=== PATIENT | male | born 1970 | race Caucasian/White ===

== ENCOUNTER 2017-04-27 13:03 | Inpatient (IN) | payer OTHER ==
[2017-04-27] MEDS ORDERED: LIDOCAINE 1% 300 MG/30 ML SDV ONE (13:08)
--- NOTE | 2017-04-27 15:51 | PDHPUP ---
History & Physical Update H&P update statement: HPI James presents for evaluation of his LLE stump s/p BKA. He reports injury while placing car cover on his car when he lost his balance and fell. He was started on a course of oral antibiotics on Monday (augmentin). He has had persistent pain overlying the distal posteromedial thigh. ROS ROS as noted in the HPI Physical Exam Patient is a 46-year-old male. Firm, tender area along the posteromedial aspect of the distal thigh. Diffuse erythema overlying the BKA stump. No evidence of purulence or infection. Distal neurovascular exam is intact. Assessment / Plan r/o LLE abscess, r/o LLE DVT James's ongoing symptoms are of unclear etiology. That said, there is suspicion for both possible DVT and possible abscess. It was recommended he undergo a LLE US and LLE MRI to evaluate for the above. These orders were placed STAT today. He will be contacted with the results to determine next steps. 1. Pain in lower limb - Left M79.605: Pain in left leg US, LOWER EXTREMITY, VASCULAR - Priority: STAT Note to Imaging Facility: r/o LLE DVT Side: LEFT LEG PAIN: CARE INSTRUCTIONS 2. Amputated below knee Z89.519: Acquired absence of unspecified leg below knee MRI FEMUR WO - LEFT - Priority: STAT Note to Imaging Facility: MRI L knee , distal thigh and amputation stump. r/o abscess Side: LEFT Height (ft.): 6 ft 7 in Weight (lbs): 320 This history and physical update is based on an assessment of the patient which was completed after admission or registration (within 24 hours), but prior to the surgery/procedure.
[2017-04-27] MEDS ORDERED: INSULIN REGULAR HUMAN 100 UNIT/ML UNIT SC ONE ×2 (19:15→21:18)
--- NOTE | 2017-04-27 19:15 | PDANEPAE ---
ANE History of Present Illness Patient presents for lower extremity I&D ANE Past Medical History - Pulmonary History Hx Oxygen in Use at Home: No Hx Sleep Apnea: No Sleep Apnea Screening Result - Last Documented: Positive - Endocrine History Hx Diabetes: Yes - Renal History Hx Renal Disorders: Yes - Chronic Pain History Chronic Pain: Yes (left foot) ANE Review of Systems Review of Systems: ANE Patient History - Allergies Allergies/Adverse Reactions: ceftriaxone sodium [From Rocephin] Allergy (Intermediate, Verified 12/27/13 09: 56) Other-Enter Comments oxycodone [Oxycodone] Allergy (Intermediate, Verified 01/08/14 10:39) Other-Enter Comments - Home Medications Home medications: home medication list seen and reviewed Home Medications: Multivitamins [Multivitamin (*)] 1 each PO DAILY 12/24/13 [Last Taken 04/26/17] Insulin Glargine [Lantus 100 UNITS/ML (*)] 40 units SC BID 04/27/17 [Last Taken 04/27/17] Insulin Lispro [HumaLOG LISPRO] 0 unit SC TIDMEAL PRN 04/27/17 [Last Taken 04/26] - NPO status NPO Status: no food or drink >8 hours NPO Since - Liquids (Date): 04/27/17 NPO Since - Liquids (Time): 09:30 NPO Since - Solids (Date): 04/27/17 NPO Since - Solids (Time): 09:30 - Anes Hx Anes Hx: no prior problems - Smoking Hx Smoking Status: Never smoked ANE Labs/Vital Signs - Labs Result Diagrams: 04/28/17 08:15 04/28/17 08:15 - Vital Signs Blood Pressure: 134/88 Heart Rate: 95 Respiratory Rate: 18 O2 Sat (%): 95 Height: 200.66 cm Weight: 145.15 kg ANE Physical Exam - Airway Neck exam: decreased ROM Mallampati Score: Class 3 - Pulmonary Pulmonary: no respiratory distress - Cardiovascular Cardiovascular: regular rate and rhythym - ASA Status ASA Status: III ANE Anesthesia Plan Anesthesia Plan: general endotracheal anesthesia Specialized Airway: video laryngoscope (RBA discussed)
[2017-04-27] MEDS ORDERED: PHENYLEPHRINE HCL 100 MCG/ML SYR ONE (19:19)
[2017-04-27] MEDS ORDERED: fentaNYL 100 MCG/2 ML INJ ONE ×2 (19:19→20:13)
[2017-04-27] MEDS ORDERED: ONDANSETRON 4 MG/2 ML VIAL ONE (19:19)
[2017-04-27] MEDS ORDERED: METOCLOPRAMIDE 10 MG/2 ML VIAL ONE (19:19)
[2017-04-27] MEDS ORDERED: SUCCINYLCHOLINE CHLORIDE 200 MG/10 ML SYR IVP ONE (19:19)
[2017-04-27] MEDS ORDERED: BUPIVACAINE 0.5% 30 ML SDV ONE (19:19)
[2017-04-27] MEDS ORDERED: VASOPRESSIN 20 UNIT/ML VIAL ONE (19:19)
[2017-04-27] MEDS ORDERED: PROPOFOL 200 MG/20 ML VIAL ONE (19:19)
--- NOTE | 2017-04-27 19:35 | POSTOPPROG ---
Post Op Note Date of Operation: 04/28/17 Surgeon: Alec Tillman Anesthesia: GET(General Endotracheal) Pre-op Diagnosis: L BKA infection Post-op Diagnosis: same Procedure: I&D L leg Inf/Abcess present in the surg proc area at time of surgery?: Yes Depth: Deep Incisional (Fascial) EBL: Minimal Specimen(s): cultures
--- NOTE | 2017-04-27 21:18 | POSTANESTH ---
Post Anesthetic Evaluation Cardiovascular Status: Similar to Pre-Op Cond Respiratory Status: Similar to Pre-op Cond. Level of Consciousness/Mental Status: Alert and Oriented (Giving insulin for hyperglycemia, otherwise uneventful recovery) Pain Control: Adequate, Prn Tx Ordered Nausea/Vomiting Control: Adequate, Prn Tx Ordered Complications Possibly Related to Anesthesia: None Noted
--- NOTE | 2017-04-27 21:35 | GOP ---
[f rep st] OPERATIVE REPORT Corrected report DATE OF OPERATION: 04/27/2017 SURGEON: Alec Tillman MD ANESTHESIA: General. PREOPERATIVE DIAGNOSIS: 1. Left below-knee amputation and abscess. 2. Retained hardware. POSTOPERATIVE DIAGNOSIS: 1. Left below knee amputation and abscess. 2. Retained hardware. PROCEDURE PERFORMED: 1. Irrigation and debridement, left below knee amputation. 2. Hardware removal, left fibula. FINDINGS: SPECIMENS: Cultures sent to pathology for evaluation. ESTIMATED BLOOD LOSS: Minimal. INDICATIONS: Patient is a 46-year-old with a several year history of a well functioning below knee amputation. The patient had a recent fall. Several days after that he began developing some redness and swelling in his leg. Aspiration was performed under ultrasound guidance, which revealed purulence. Based on this, he was taken back to the operating room for formal irrigation and debridement. The patient acknowledged he understood the potential risks including, but not limited to, bleeding, infection, neurovascular damage, loss of limb function, need for further operative treatment, persistence of infection and the anesthetic risks. He acknowledged he understood the potential risks, planned procedure, and postoperative plan well, and had all questions answered. He gave his consent for the operative procedure. DESCRIPTION OF PROCEDURE: The patient was brought to the operating after IV antibiotics were administered. He was placed in a supine position where general anesthetic was administered. A tourniquet was placed on his left thigh. His left lower leg was prepped and draped in standard sterile fashion. After marking the incision, Asim wrap exsanguination, tourniquet was inflated to 250. A small incision was made along the medial aspect of his distal below- knee amputation over an area of fluctuance and an area which had been confirmed to have purulence under ultrasound guidance. Skin and subcutaneous tissue were sharply incised. Below the subcutaneous tissue purulence was expressed. This was approximately 5 mL. Utilizing 9 L of sterile saline irrigant, the wound was copiously irrigated. After the 1st 3 L had been irrigated, the scissors were utilized to open up the contained area further to see if the abscess tracked. It did not track any further. After complete irrigation was performed , a 10-Indonesian drain was placed and the wound was closed with 3-0 Vicryl suture in the subcutaneous tissue and 3-0 nylon interrupted vertical mattress sutures. Attention was then directed toward his screw removal. Under fluoroscopic guidance, the location of the screw head was identified. A stab incision was made over this. The screw was identified and removed without difficulty. The wound was closed with 3-0 nylon suture. The wounds were dressed with sterile Adaptic, 4 x 4, and Kerlix. Patient tolerated the procedure well, was taken to the recovery room extubated in stable condition postoperatively. All sponge, needle, instrument counts were reported as being correct. DRAINS: 10-Indonesian SUKUMAR. COMPLICATIONS: None. /[id number]/MODL Homer acc#, 04/28/17, oliver CAMPBELL
[2017-04-27] MEDS ORDERED: D5W 1/2 NS W/ 20 KCl/L 1,000 ML IV SCH (23:12)
[2017-04-27] MEDS ORDERED: HYDROmorphONE/DILAUDID 6 MG/30 ML PCA IV PRN (23:20)
[2017-04-27] MEDS ORDERED: diphenhydrAMINE 25 MG CAP PO PRN (23:20)
[2017-04-27] MEDS ORDERED: NALOXONE HCL 0.4 MG/ML INJ IVP PRN (23:20)
[2017-04-27] MEDS ORDERED: VANCOMYCIN 1.5 GM in NS 250 ML IV ONE (23:20)
[2017-04-27] MEDS ORDERED: INSULIN LISPRO 100 UNIT/ML SC PRN (23:20)
[2017-04-27] MEDS ORDERED: D50W 25 GM/50 ML VIAL IVP PRN (23:38)
[2017-04-27] MEDS ORDERED: NS 1,000 ML IV SCH (23:45)
[2017-04-28] MEDS: INSULIN GLARGINE 100 UNITS/ML UNIT SC SCH ×3 (00:01→21:34)
[2017-04-28] MEDS: HYDROmorphONE/DILAUDID 1 MG/ML INJ IVP PRN ×2 (00:15→05:58)
--- NOTE | 2017-04-28 06:49 | SOAPPROG ---
SOAP Progress Note Assessment/Plan: Assessment: S/P I&D L BKA Pain tolerable Noah po L LE Dressing/drain intact. Mild sang drain output Thigh erythema improved Plan: Infection appeared to be isolated pocket of infection that did not communicate with the bone Con't drain Abx per ID 04/28/17 06:46 Objective: Vital Signs Temp Pulse Resp BP Pulse Ox 36.9 C 83 17 142/79 H 98 04/28/17 04:32 04/28/17 04:32 04/28/17 04:32 04/28/17 04:32 04/28/17 04:32 Microbiology 04/27/17 14:30 Gram Stain - Final Thigh - Aspirate 04/27/17 04/28/17 04/29/17 05:59 05:59 05:59 Intake Total 1860 Output Total 710 Balance 1150 ICD10 Worksheet Patient Problems: Problems Problem Status Onset Diabetes mellitus type 1 Active MRSA - Methicillin resistant Staphylococcus aureus infection Active
[2017-04-28] MEDS ORDERED: INSULIN LISPRO 100 UNIT/ML SC SCH (07:30)
[2017-04-28] MEDS ORDERED: INSULIN LISPRO 100 UNIT/ML SC ONE (07:57)
[2017-04-28] MEDS ORDERED: traMADol 50 MG TAB PO PRN (08:00)
[2017-04-28] MEDS ORDERED: LORazepam 0.5 MG TAB PO PRN (08:01)
[2017-04-28] MEDS: INSULIN LISPRO 100 UNIT/ML SC SCH ×3 (08:33→18:25)
[2017-04-28] MEDS: MULTIVITAMINS 1 EACH TAB PO SCH (08:34)
[2017-04-28 08:39] LABS: PLATELET COUNT 242 10^3/uL (150-400)
--- NOTE | 2017-04-28 08:52 | WOCRNPDOC ---
WOCRPedro Advanced Assessment Note - Skin Integrity Problem, Advanced Assess Left Lateral Residual Limb Abrasion Dressing Type: Kerlix Exudate Amount: Scant Exudate Color: Reddish/Yellow Exudate Characteristic(s): Serosanguinous Integumentary Issue Intervention: Dressing Applied, Hydrogel Applied Margot Wound Tissue: Intact Margot Wound Swelling: Mild Wound Bed Color: Red Wound Bed Constitution: Red/[place] - Non Granular Tissue Wound Edges: Epithelizing Site Odor: None Site Measurement - Head-to-Toe Length X Width X Depth (cm): 1.2cmx1.4cmx0.1cm Skin Integrity Problem Comment: Small, partial-thickness wound on lateral aspect of patient's L residual limb, which he reports is a result of friction from using his former prosthesis. Periwound skin is intact, and swelling in this extremity is the result of surgery. Allevyn dressing and hydrogel applied. Wound care does not need to follow this wound ongoing. rug setter axminsterSUSI Rowe present to visualize site.
--- NOTE | 2017-04-28 12:48 | GCON ---
[f rep st] CONSULTATION DATE OF CONSULTATION: 04/28/2017 REFERRING PHYSICIAN: Alec Tillman MD SOURCE: Patient provides history, appears reliable. His EMR was reviewed. REASON FOR CONSULTATION: Assistance with medical management. CHIEF COMPLAINT: "My sugars are always high", uncontrolled diabetes. HISTORY OF PRESENT ILLNESS: This is a 46-year-old gentleman with past medical history significant fo r diabetes type 2, uncontrolled for the past 15 years, on insulin therapy, who is admitted postop day #1 now status post left BKA revision and I and D. Hospitalist service consulted to assist with medi nader management by problem. 1. Diabetes type 2, uncontrolled with multiple complications including neuropathy, nephropathy, and hyperglycemia. Patient reports that he takes Lantus 40 units subcu b.i.d. as well as insulin sliding scale. He remains intermittently compliant with a diabetic diet and reports that his average mornin g blood sugars remain above 350, but feels that this is normal for him. The patient without any poly uria, polydipsia, or polyphagia at this time. No shortness of breath. No fevers. 2. History of elevated blood pressures. Patient denies hypertension or treatment for it. The patie nt was previously hospitalized 2013 following his initial left BKA at which point he was discharged o n antihypertensives. However, patient reports that he no longer takes these medications. He denies any chest pain, palpitations, headache. 3. Anemia, likely of chronic disease. The patient's H and H yesterday were above previous labs avai lable for review. REVIEW OF SYSTEMS: Negative, except as noted above. ALLERGIES: To Rocephin, Versed, oxycodone. HOME MEDICATIONS: Lantus 40 units subcu twice daily and lispro dose sliding scale. CURRENT HOSPITAL MEDICATIONS: Benadryl, Dilaudid, Lantus, lispro, naloxone and vancomycin. PAST MEDICAL HISTORY: Significant for diabetes type 2, insulin dependent, remote history of MRSA wou nd infection in 2013, status post BKA, benign essential hypertension, which patient reports is untrea janette, anemia, and obesity with BMI of 36. PAST SURGICAL HISTORY: Significant for left BKA in 2013 and now postop day #1 status post I and D an d drain. FAMILY HISTORY: Patient denies any diabetes or coronary artery disease. SOCIAL HISTORY: Patient lives with his father. He does not smoke. He drinks occasionally. No illi cit drug use. CODE STATUS: Full. PHYSICAL EXAM: VITAL SIGNS: Currently blood pressure 137/78, pulse 83, respiratory rate 18, O2 sat is 97% on 3 L by nasal cannula with a temperature 36.8. GENERAL: No acute distress. Bradford, adul t gentleman, obese, who is lying quietly in bed. HEAD: Normocephalic, atraumatic. EYES: Extraocula r muscles are grossly intact but patient, pupils are symmetric. No scleral icterus or conjunctival i njection. ENT: Mucous membranes appear slightly dry. No oropharyngeal erythema or exudates. No na johanna discharge. NECK: Supple, trachea midline. CARDIOVASCULAR: Regular rate and rhythm. No murmurs , rubs, or gallops appreciated. RESPIRATORY: Unlabored breathing. Lungs are clear to auscultation b ilaterally. No wheezes, rales, or rhonchi appreciated. ABDOMEN: Obese, soft, nontender to palpatio n. No rebound, guarding, or masses appreciated. : No Huffman in place. No suprapubic tenderness t o palpation. EXTREMITIES: Left lower extremity is bandaged with a drain and there is serosanguineou s fluid in the bulb. No lower extremity edema on the right lower extremity. NEURO: Grossly nonfoca l, no facial drooping. Moves all extremities while lying in bed. PSYCH: Affect is slightly flat. The patient is a little bit sleepy after a dose of Dilaudid. The patient is cooperative and pleasant . LABORATORY STUDIES: From 04/27/2017, WBC 9.14, H and H 10.6 and 31.1, MCV of 81.4, platelet count is 244, 1.5% bands. Sodium is 132, potassium 4.0, chloride 103, CO2 is 18, anion gap 11, BUN 38, creati nine 3.1, GFR of 22. Based on previous laboratory studies from 2004, it appears patient's baseline c reatinine is between 3 and 4, glucose is 338, calcium 8.6. This morning's bedside glucose is greater than 350. Gram stains from wound cultures with multiple polys and gram-positive cocci. Cultures ar e pending. ASSESSMENT AND PLAN: Bradford 46-year-old gentleman status post operative day #1 for a left stump in cision and drainage with drain. Hospitalist consultation for assistance with medical management by nina jose: 1. Diabetes type 2, uncontrolled. Resume patient's Lantus 40 units twice daily as well as high dose lispro. ADA diet is ordered and will monitor blood sugars closely as I suspect his diet in-house wi ll vary from his home intake. Accu-Cheks, high-dose sliding scale have also been ordered. Morning l abs are pending. 2. Chronic kidney disease stage 4, likely close to baseline. Will plan to repeat a BMP this morning and monitor. 3. Hyponatremia, likely related to hyperglycemia, which nearly corrects, versus some component of de hydration. BMP is pending this morning. 4. History of Methicillin-resistant staphylococcus aureus wound infection remotely, now status post incision and drainage with gram-positive cocci on 04/14 wound cultures. Wound Gram stains and cultures are pending. Infectious Disease has been consulted by the primary team. Vancomycin has already bee n received. 5. Anemia, likely component of some anemia of chronic disease. Will monitor for any postop losses. 6. Obesity, body mass index of 36.0. 7. Fluid, electrolyte, nutrition. The patient does have intravenous fluids 75 mL/h infusing for 1 L , agree with this and then advance diet as tolerated. Encourage oral hydration. Electrolytes will b e monitored. Patient with likely pseudohyponatremia. He is receiving intravenous fluids and will re peat a BMP this morning. ADA diet is ordered as per primary team. 8. Prophylaxis is sequential compression devices to the right leg. Anticoagulation as per primary t eam. 9. Code full. DISPOSITION: Patient admitted for observation on the medical floor. Of note, patient has an OBS nanci rt in which all the admission orders and labs are located should you be looking for the patient's adm ission data. /[id number]/MODL
--- NOTE | 2017-04-28 13:49 | HOSPPROG ---
Hospitalist Progress Note Assessment/Plan: Patient is a 46-year-old male who was admitted for a left BKA revision and I and D. The hospitalist team was asked to get involved with his care to help evaluate his glucoses and hypertension. I reviewed his care with the hospitalist this morning. Came by to follow up with him and make sure his questions were answered. * diabetes type 2 -on long-acting 40 U twice daily -high-dose lispro -ADA diet initiated * chronic kidney disease stage 4 -reviewed his kidney function in the past and this is close to his baseline * hyponatremia * status post left BKA revision and I and D -care per Dr. Tillman -patient describes falling and getting a hematoma *left stump abscess -vanco -ID seeing * obesity with a BMI of 36 * anemia -following *dvt prophylaxis: if ok with ortho, would recommend heparin sq tid, for now cont athrombic pump, ambulation *Plan: cont abx, follow glucoses closely Subjective: James said his pain is overall well managed. Objective: Vital Signs Temp Pulse Resp BP Pulse Ox 36.9 C 82 17 148/85 H 97 04/28/17 11:32 04/28/17 11:32 04/28/17 11:32 04/28/17 11:32 04/28/17 11:32 Microbiology 04/27/17 14:30 Gram Stain - Final Thigh - Aspirate Laboratory Results 04/28/17 08:15 04/28/17 08:15 04/27/17 04/28/17 04/29/17 05:59 05:59 05:59 Intake Total 1860 Output Total 710 Balance 1150 - Physical Exam Constitutional: no apparent distress, obese Eyes: PERRL Ears, Nose, Mouth, Throat: hearing normal Respiratory: no respiratory distress Gastrointestinal: normoactive bowel sounds Skin: warm Musculoskeletal: generalized weakness Neurologic: AAOx3 Psychiatric: interacting appropriately, not anxious, not encephalopathic ICD10 Worksheet Patient Problems: Problems Problem Status Onset Diabetes mellitus type 1 Active MRSA - Methicillin resistant Staphylococcus aureus infection Active
--- NOTE | 2017-04-28 14:13 | GCON ---
[f rep st] CONSULTATION INPATIENT INFECTIOUS DISEASE CONSULTATION DATE OF CONSULTATION: 04/28/2017 REFERRING PHYSICIAN: Alec Tillman MD REASON FOR REFERRAL: Left stump site abscess. HISTORY OF PRESENT ILLNESS: Patient is a 46-year-old male, well known to our group from previous davy betic foot infections, who underwent a BKA multiple years ago on the left side. He has been doing ve ry well with the prosthesis since then. The patient was admitted to [facility] on 04/13 for an aspiration by ultrasound of a collection that developed on the left BKA stump site appr oximately 5 days prior to admission. Haemopurulent fluid was aspirated. Gram stain shows 4+ polymor phonuclear white cells and 3+ gram-positive cocci. The patient was begun empirically on vancomycin. He is currently resting postoperatively. After debridement and wash out earlier today. The patient denies any fevers or chills. No other new complaint. PAST MEDICAL HISTORY: 1. Diabetes mellitus. 2. Chronic kidney disease. 3. Anemia. PAST SURGICAL HISTORY: 1. Status post left BKA. ANTIBIOTICS: Vancomycin. ALLERGIES: Patient is allergic to ceftriaxone and oxycodone. SOCIAL HISTORY: No significant tobacco, alcohol or drug use noted. FAMILY HISTORY: Reviewed but noncontributory. REVIEW OF SYSTEMS: Other than that detailed above in history of present illness, comprehensive 10-sy stem review is negative. PHYSICAL EXAMINATION: VITAL SIGNS: Temperature maximum is 37.2, temperature current is 36.9, heart rate is 82, respiratory rate is 17, blood pressure is 148/85. GENERAL: The patient is a well-formed , well-nourished, middle-aged male in no acute distress. He is not toxic in appearance. He is alert and oriented x3. He has a pleasant demeanor. HEENT: Normocephalic for age. Atraumatic. No scler al icterus. No oral lesion or no drainage from the nares. Eyes: Lids and conjunctivae are within n ormal limits. Pupils are equal and round bilaterally. NECK: Supple. No meningismus. LUNGS: Peggy r to auscultation bilaterally with good effort. HEART: Regular rate and rhythm. No significant per ipheral edema. SKIN: Warm and dry to the touch. No rash noted. Patient does have postoperative ar ea with SUKUAMR drain in the distal left lower extremity. No significant proximal erythema noted. MUSCUL OSKELETAL: Patient is status post left-sided BKA. LABORATORY DATA: Patient has a CBC dated 04/28/2017, shows a white blood cell count of 6.6, hemoglob in of 10.4, hematocrit of 31.1, platelet count of 242. Differentials within normal limits. Serum ch emistries on 04/28/2017 show sodium of 135, potassium 4.3, chloride 108, bicarbonate of 18, BUN of 39 and creatinine of 3.0. MICROBIOLOGIC DATA: Patient has a thigh aspirate dated 04/27/2017 which shows 4+ polymorphonuclear w aubrey cells and 3+ gram-positive cocci and Gram stain. Culture is pending. ASSESSMENT: Left below-knee amputation stump site abscess with GPCs on Gram stain. No growth in cul ture yet. This probably represents staphylococcal disease. Patient is covered with vancomycin given with a 1.5 g dose yesterday. Given the patient has significant kidney insufficiency, he will probab ly hang on to this level for quite some time. We will check his vancomycin random level tomorrow mor zora to decide about re-dosing. If the level is below 15, we will give another gram. We will contin ue to watch the culture data from the aspirate and adjust treatment accordingly. PLAN: 1. Continue intermittent vancomycin dosage directed by levels. 2. Adjust antibiotic choice given culture results. /[id number]/MODL
[2017-04-29] MEDS: INSULIN GLARGINE 100 UNITS/ML UNIT SC SCH ×2 (09:19→21:31)
[2017-04-29] MEDS: INSULIN LISPRO 100 UNIT/ML SC SCH ×3 (09:20→18:12)
[2017-04-29] MEDS: MULTIVITAMINS 1 EACH TAB PO SCH (09:20)
--- NOTE | 2017-04-29 11:32 | PCMIDPN ---
Assessment/Plan: 1. Left thigh stump cellulitis/abscess status post incision and drainage: Cultures are growing 4+ MSSA. Will stop vancomycin and start Ancef, renally dosed. If the patient continues to improve, he may be able to transition to oral therapy given no evidence of bone involvement. Of note, per pharmacy, the patient's ceftriaxone allergy is reported to be"lethargy."This will be removed from his allergy list. 04/29/17 11:30 Subjective: In decent spirits. No real complaints. No diarrhea on the antibiotics. Adamantly denies any allergy to beta-lactam antibiotics. Objective: Vancomycin dosed by levels day 1 Afebrile Vital Signs Temp Pulse Resp BP Pulse Ox 36.3 C 89 16 130/86 H 97 04/29/17 07:31 04/29/17 07:31 04/29/17 07:31 04/29/17 07:31 04/29/17 07:31 Microbiology 04/27/17 14:30 Gram Stain - Final Thigh - Aspirate Body Fluid Culture - Final Staphylococcus Aureus Laboratory Results 04/28/17 08:15 04/28/17 08:15 04/28/17 04/29/17 04/30/17 05:59 05:59 05:59 Intake Total 1860 2225 Output Total 710 2215 750 Balance 1150 10 -750 Thigh cultures with 4+ MSSA - Physical Exam General Appearance: no apparent distress, obese EENT: pharynx normal, No thrush Respiratory: lungs clear Extremities: other (Left thigh stump medial aspect notable for 3 cm incision with suture in place. Some surrounding erythema, but less beet red per the patient. A drain is in place with some bloody fluid. There is some pilar- incisional tenderness, but no obvious drainage from the wound.) ICD10 Worksheet Patient Problems: Problems Problem Status Onset Diabetes mellitus type 1 Active MRSA - Methicillin resistant Staphylococcus aureus infection Active
[2017-04-29] MEDS: ceFAZolin 2 GM/DEXTROSE 100 ML IV SCH ×2 (11:47→23:17)
--- NOTE | 2017-04-29 11:57 | HOSPPROG ---
Hospitalist Progress Note Assessment/Plan: Patient is a 46-year-old male who was admitted for a left BKA revision and I and D. The hospitalist team was asked to get involved with his care to help evaluate his glucoses and hypertension. * diabetes type 2 -glucoses in low 200's today, will increase Lantus to 42 units bid -high-dose lispro -ADA diet initiated * chronic kidney disease stage 4 -reviewed his kidney function in the past, baseline * hyponatremia -resolved * status post left BKA revision and I and D -care per Dr. Tillman -patient describes falling and getting a hematoma *left stump cellulitis, abscess (MSSA) -s/p I & D -abx changed to Ancef * obesity with a BMI of 36 * anemia -following *dvt prophylaxis: heparin sq tid *Plan: add heparin tid sq, increase insulin to get better glucose control Subjective: James has no complaints, watching tv with his dad. Objective: Vital Signs Temp Pulse Resp BP Pulse Ox 36.6 C 77 18 130/86 H 96 04/29/17 11:47 04/29/17 11:47 04/29/17 11:47 04/29/17 11:47 04/29/17 11:47 Microbiology 04/27/17 14:30 Gram Stain - Final Thigh - Aspirate Body Fluid Culture - Final Staphylococcus Aureus Laboratory Results 04/28/17 08:15 04/28/17 04/29/17 04/30/17 05:59 05:59 05:59 Intake Total 1860 2225 Output Total 710 2215 750 Balance 1150 10 -750 - Physical Exam Constitutional: no apparent distress, appears nourished, obese Eyes: PERRL Ears, Nose, Mouth, Throat: hearing normal Cardiovascular: regular rate and rhythym Respiratory: no respiratory distress Gastrointestinal: normoactive bowel sounds Skin: warm Neurologic: AAOx3 Psychiatric: interacting appropriately ICD10 Worksheet Patient Problems: Problems Problem Status Onset Diabetes mellitus type 1 Active MRSA - Methicillin resistant Staphylococcus aureus infection Active
--- NOTE | 2017-04-29 14:56 | SOAPPROG ---
SOAP Progress Note Assessment/Plan: Assessment: S/P I&D L BKA Pain tolerable Noah po L LE Dressing/drain intact. Mild sang drain output Thigh erythema improved Plan: Infection appeared to be isolated pocket of infection that did not communicate with the bone Con't drain Abx per ID 04/28/17 06:46 04/29/17 14:54 IM and ID consultations appreciated Pain improving Dressing/drain intact. Erythema markedly improved Abx per ID Will D/C when OK per ID Objective: Vital Signs Temp Pulse Resp BP Pulse Ox 36.6 C 77 18 130/86 H 96 04/29/17 11:47 04/29/17 11:47 04/29/17 11:47 04/29/17 11:47 04/29/17 11:47 Microbiology 04/27/17 14:30 Gram Stain - Final Thigh - Aspirate Body Fluid Culture - Final Staphylococcus Aureus Laboratory Results 04/28/17 08:15 04/29/17 11:45 04/28/17 04/29/17 04/30/17 05:59 05:59 05:59 Intake Total 1860 2225 Output Total 710 2215 750 Balance 1150 10 -750 ICD10 Worksheet Patient Problems: Problems Problem Status Onset Diabetes mellitus type 1 Active MRSA - Methicillin resistant Staphylococcus aureus infection Active
[2017-04-29] MEDS: HEPARIN 5,000 UNIT/0.5 ML SYR SC SCH ×2 (15:36→21:32)
[2017-04-30 04:31] VITALS: RESP 16
[2017-04-30] MEDS: HEPARIN 5,000 UNIT/0.5 ML SYR SC SCH (05:30)
[2017-04-30 07:48] VITALS: BP 161/91; PULSE 75; TEMP 97.6; O2SAT 96
[2017-04-30] MEDS: INSULIN LISPRO 100 UNIT/ML SC SCH (07:54)
[2017-04-30] MEDS: INSULIN GLARGINE 100 UNITS/ML UNIT SC SCH (08:42)
[2017-04-30] MEDS: MULTIVITAMINS 1 EACH TAB PO SCH (08:42)
--- NOTE | 2017-04-30 08:50 | HOSPPROG ---
Hospitalist Progress Note Assessment/Plan: Patient is a 46-year-old male who was admitted for a left BKA revision and I and D. The hospitalist team was asked to get involved with his care to help evaluate his glucoses and hypertension. * diabetes type 2 -glucoses better today, increased Lantus -high-dose lispro -ADA diet initiated * chronic kidney disease stage 4 -reviewed his kidney function in the past, baseline * hyponatremia -resolved * status post left BKA revision and I and D -care per Dr. Tillman -patient describes falling and getting a hematoma *left stump cellulitis, abscess (MSSA) -s/p I & D -abx changed to Ancef * obesity with a BMI of 36 * anemia -following *dvt prophylaxis: heparin sq tid *Plan: will review w Dr Tillman and Dr Galan as to when patient may be able to be dc Subjective: James is feeling fine, no complaints. Objective: Vital Signs Temp Pulse Resp BP Pulse Ox 36.4 C 75 16 161/91 H 96 04/30/17 07:47 04/30/17 07:47 04/30/17 07:47 04/30/17 07:47 04/30/17 07:47 Microbiology 04/27/17 14:30 Gram Stain - Final Thigh - Aspirate Body Fluid Culture - Final Staphylococcus Aureus Laboratory Results 04/28/17 08:15 04/29/17 11:45 04/29/17 04/30/17 05/01/17 05:59 05:59 05:59 Intake Total 2225 800 Output Total 2215 2720 700 Balance 10 1920 -700 - Physical Exam Constitutional: no apparent distress, not in pain, obese Ears, Nose, Mouth, Throat: hearing normal Cardiovascular: regular rate and rhythym Respiratory: no respiratory distress Gastrointestinal: normoactive bowel sounds Skin: warm Musculoskeletal: other (left lower ext in toya wrap, minimal drainage from drain) Neurologic: AAOx3 Psychiatric: interacting appropriately, flat affect ICD10 Worksheet Patient Problems: Problems Problem Status Onset Diabetes mellitus type 1 Active MRSA - Methicillin resistant Staphylococcus aureus infection Active
--- NOTE | 2017-04-30 09:32 | PCMIDPN ---
Assessment/Plan: 1. Left thigh stump cellulitis/abscess status post incision and drainage: I think he is fine to go home today on Augmentin 875 p.o. Twice daily for another 10 days. Will give him a dose of Ancef at noon prior to discharge. He will follow up with Dr. Tillman. I do not necessarily think he needs to follow up with our service, per se. Patient understands the importance of keeping his wound clean, and not wearing his prosthesis until directed by Dr. Tillman so as to not irritate the area. Subjective: Eager to go home. Objective: Ancef 2 g IV q.12 hours day 1 (antibiotics day 2) Afebrile Vital Signs Temp Pulse Resp BP Pulse Ox 36.4 C 75 16 161/91 H 96 04/30/17 07:47 04/30/17 07:47 04/30/17 07:47 04/30/17 07:47 04/30/17 07:47 Microbiology 04/27/17 14:30 Gram Stain - Final Thigh - Aspirate Body Fluid Culture - Final Staphylococcus Aureus Laboratory Results 04/28/17 08:15 04/29/17 11:45 04/29/17 04/30/17 05/01/17 05:59 05:59 05:59 Intake Total 2225 800 Output Total 2218 8678 700 Balance Stump abscess with MSSA - Physical Exam General Appearance: no apparent distress, obese Extremities: other (Left stump incision with minimal surrounding pinkish erythema, better compared with yesterday. Less tenderness.) ICD10 Worksheet Patient Problems: Problems Problem Status Onset Diabetes mellitus type 1 Active MRSA - Methicillin resistant Staphylococcus aureus infection Active
--- NOTE | 2017-04-30 10:20 | GDS ---
[f rep st] DISCHARGE SUMMARY DISCHARGE DIAGNOSES: 1. Diabetes type 2. 2. Status post left below knee amputation, revision and incision and drainage. 3. Chronic kidney disease. 4. Hyponatremia. 5. Left stump cellulitis with associated small abscess, not communicating to bone. 6. Obesity with a BMI of 36. 7. Anemia. CONSULTATIONS: 1. Dr. Remedios Jeter with hospitalist. 2. Dr. Alec Tillman, admitting physician. 3. Dr. Randy Henao with infectious disease. HISTORY OF PRESENT ILLNESS: Briefly, the patient is a 46-year-old male who has had previous diabetic foot infections. He underwent a BKA multiple years ago on the left side. He had been doing well wi th his prosthesis since then. He was admitted to [facility] on April 27, 2017, for an aspiration on ultrasound of a collection that developed on the left BKA stump site approximately 5 days prior to his admission. He was admitted and treated with IV antibiotics. His culture grew out Staphylococcus aureus. He will be discharged home today on Augmentin and further follow up with Dr. Tillman. HOSPITAL COURSE PER PROBLEM: 1. Left stump cellulitis with associated abscess. This is status post I and D. He was treated with Ancef and will be discharged home on Augmentin. No fever or chills, markedly improved. 2. Diabetes type 2. His glucose is a bit better with increasing Lantus. He is on high-dose lispro. He is on ADA diet. 3. Chronic disease. He has stage 4. He is stable. 4. Hyponatremia, resolved. 5. Obesity. He has a BMI of 36. 6. Anemia, overall stable. DISCHARGE CONDITION: Stable, blood pressure is elevated at 161/91, heart rate is 75, respiratory rat e is 16, O2 saturation on room air 96%, temperature is 36.4 Celsius. MEDICATIONS AT DISCHARGE: Please see the EMR. DISCHARGE INSTRUCTIONS: 1. Follow up with Dr. Tillman if he has fever, chills, or pain at the stump site. Also to follow up with him anyway for evaluation. 2. He has had some elevated blood pressure. Recommending he get a cuff at home. He may need treatm ent for this. 3. Start his Augmentin tonight. Greater than 30 minutes spent discharging and coordinating his care. /[id number]/MODL
[2017-04-30] MEDS: ceFAZolin 2 GM/DEXTROSE 100 ML IV SCH (10:35)
== END 2017-04-30 11:25 | disposition home or self-care (01) | DRG 496 ==
LOC: FIMAGING 13:03 → F3N 15:47 → OBSVTOIN 15:47
PROVIDERS: ADMIT Orthopaedic Surgery Foot and Ankle Surgery; ATTEND Internal Medicine
PROC: 0J9P0ZX Drainage of Left Lower Leg Subcutaneous Tissue and Fascia, Open Approach, Diagnostic (ICD-10-PCS; principal; 2017-04-28)
PROC: 0QPK04Z Removal of Internal Fixation Device from Left Fibula, Open Approach (ICD-10-PCS; principal; 2017-04-28)
PROC: BH48ZZZ Ultrasonography of Lower Extremity (ICD-10-PCS; 2017-04-28)
PROC: BQ1FZZZ Fluoroscopy of Left Lower Leg (ICD-10-PCS; 2017-04-28)
DX: T87.44 Infection of amputation stump, left lower extremity (principal); L02.416 Cutaneous abscess of left lower limb; B95.61 Methicillin susceptible Staphylococcus aureus infection as the cause of diseases classified elsewhere; N18.4 Chronic kidney disease, stage 4 (severe); E87.1 Hypo-osmolality and hyponatremia; E11.22 Type 2 diabetes mellitus with diabetic chronic kidney disease; E11.40 Type 2 diabetes mellitus with diabetic neuropathy, unspecified; D63.1 Anemia in chronic kidney disease; E66.9 Obesity, unspecified; Z89.519 Acquired absence of unspecified leg below knee; Z68.36 Body mass index [BMI] 36.0-36.9, adult; Z79.4 Long term (current) use of insulin
CPT/HCPCS: 97116-GP; 97161-GP; J0330; J0690; J1170; J1644; J1815; J2370; J2405; J2704; J2765; J3010; J3370